=== PATIENT | male | born 1935 | race Caucasian/White ===

== ENCOUNTER 2016-09-15 13:17 | Emergency (ER) | payer OTHER ==
[~2016-09-15] VITALS: Ht 190.5 cm; Wt 86.2 kg
[2016-09-15] MEDS ORDERED: SODIUM CHLORIDE 0.9% 1,000 ML IV ONE (13:45)
[2016-09-15 14:04] LABS: Basophils # (auto) 0 uL; Eosinophils # (auto) 0.1 uL; Eosinophils % (auto) 0.6 % (0.0-7.0); Hematocrit 47.2 % (41.0-53.0); Hemoglobin 15.8 g/dL (13.5-17.5); Lymphocytes # (auto) 1.2 uL; Lymphocytes % (auto) 10.7 % (10.0-50.0); Mean Corpuscular Hemoglobin 32.2 pg (28.0-32.0); Mean Corpuscular Hgb Conc. 33.4 g/dL (32.0-36.0); Mean Corpuscular Volume 96.2 fL (80.0-100.0); Mean Platelet Volume 6.9 fL (7.4-10.4); Monocytes # (auto) 0.5 uL; Monocytes % (auto) 4.4 % (0.0-12.0); Neutrophils # (auto) 9.1 uL; Neutrophils % (auto) 84.3 % (37.0-80.0); Platelet Count (auto) 239 10^3/uL (140-450); White Blood Cell 10.8 10^3/uL (4.4-10.8)
[2016-09-15 14:15] LABS: INR 1.14 (0.9-1.15); Prothrombin Time 11.7 sec (9.37-12.3)
[2016-09-15 14:27] LABS: BUN/Creatinine Ratio 15.4; Bilirubin, Total 0.7 mg/dL (0.2-1.0); Calcium 10.9 mg/dL (8.5-10.1); Potassium 3.7 mmol/L (3.5-5.1)
[2016-09-15 14:30] LABS: B-Type Natriuretic Peptide 21.97 pg/mL (0-100)
[2016-09-15 14:43] LABS: Temperature: 22.5 C (20.0-25.0)
[2016-09-15 16:12] LABS: Urine Bilirubin Negative (Negative); Urine Blood Negative /uL (Negative); Urine Color Yellow (Yellow); Urine Glucose TRACE mg/dL (Normal); Urine Hyaline Cast FEW /lpf (0 - 2); Urine Mucus FEW (None Seen); Urine Nitrite Negative (Negative); Urine RBC <1 /hpf (0 - 3); Urine Squamous Epithelial Cell FEW /hpf (<5); Urine Urobilinogen Normal (Negative); Urine pH 5.5 (5.0-8.0)
[2016-09-15 16:13] LABS: Urine Ketone 2+ (Negative)
[2016-09-15] MEDS ORDERED: traZODone HCL 50 MG TAB PO ONE (17:15)
[2016-09-15] MEDS ORDERED: QUEtiapine FUMARATE 25 MG TAB PO ONE (17:15)
[2016-09-15 18:15] VITALS: BP 153/101
== END 2016-09-15 18:35 | disposition short-term general hospital (02) ==
LOC: ER 13:39
DX: S09.90XA Unspecified injury of head, initial encounter (principal); I25.10 Atherosclerotic heart disease of native coronary artery without angina pectoris; E11.9 Type 2 diabetes mellitus without complications; I10 Essential (primary) hypertension; R51 Headache; R53.1 Weakness; R06.02 Shortness of breath; W19.XXXA Unspecified fall, initial encounter; Y93.89 Activity, other specified; Y99.8 Other external cause status; Y92.098 Other place in other non-institutional residence as the place of occurrence of the external cause
CPT/HCPCS: 36415; 70450; 71010; 80053; 81001; 83880; 84484; 85025; 85049; 85610; 85730; 96360; 99285; J7030